=== PATIENT | female | born 1990 | race Caucasian/White ===

== ENCOUNTER 2023-04-01 11:11 | Emergency (ER) | payer BC ==
[2023-04-01] MEDS ORDERED: Acetaminophen 325 MG Tab PO ONE (11:50)
[2023-04-01] MEDS ORDERED: Ibuprofen 400 MG Tab PO STA (11:50)
== END 2023-04-01 12:47 | disposition home or self-care (01) ==
LOC: MW.ED 11:11
DX: M25.512 Pain in left shoulder (principal); Z91.048 Other nonmedicinal substance allergy status; Z91.040 Latex allergy status
CPT/HCPCS: 73030; 99283; A9270

== ENCOUNTER 2023-04-04 18:32 | Emergency (ER) | payer BC ==
[2023-04-04 19:22] LABS: BASOPHILS PERCENT AUTO 0.3 % (0.0-1.5); EOSINOPHILS ABSOLUTE AUTO 0.1 K/uL (0.0-0.7); EOSINOPHILS PERCENT AUTO 1.7 % (0.0-7.0); HEMATOCRIT 40.3 % (36.0-46.0); HEMOGLOBIN 13.9 g/dL (12.0-16.0); LYMPHOCYTES ABSOLUTE AUTO 1.6 K/uL (0.6-2.4); LYMPHOCYTES PERCENT AUTO 23.3 % (16.0-40.0); MEAN CORPUSCULAR HEMOGLOBIN 30.8 pg (27.0-32.0); MEAN CORPUSCULAR HGB CONC 34.5 g/dL (31.0-37.0); MEAN CORPUSCULAR VOLUME 89.4 fL (80.0-98.0); MONOCYTES ABSOLUTE AUTO 0.4 K/uL (0.0-0.8); MONOCYTES PERCENT AUTO 6.5 % (0.0-15.0); NEUTROPHILS ABSOLUTE AUTO 4.5 K/uL (1.4-5.7); NEUTROPHILS PERCENT AUTO 68.2 % (48.0-80.0); NRBC ABSOLUTE 0 K/uL; PLATELET COUNT,PLT 156 K/uL (150-400); RED BLOOD CELL COUNT 4.51 M/uL (4.30-5.90); WHITE BLOOD CELL COUNT,WBC 6.65 K/uL (4.0-11.0)
[2023-04-04] MEDS ORDERED: Acetaminophen 325 MG Tab PO ONE (19:27)
[2023-04-04] MEDS ORDERED: Lidocaine 4% 1 each Patch TOP SCH (19:30)
[2023-04-04 19:34] LABS: A/G RATIO 1.2 (0.9-1.6); ALANINE AMINOTRANSFERASE,ALT 12 IU/L (14-63); ALBUMIN 3.7 g/dL (3.4-5.0); ALKALINE PHOSPHATASE 56 U/L (46-116); ASPARTATE AMNIOTRANSFERASE,AST 11 IU/L (15-37); BILIRUBIN TOTAL 0.2 mg/dL (0.2-1.0); BLOOD UREA NITROGEN,BUN 16 mg/dL (7.0-18.0); CALCIUM 8.4 mg/dL (8.5-10.1); CARBON DIOXIDE,CO2 23.6 mmol/L (21.0-32.0); CHLORIDE,CL 107 mmol/L (98-107); EST CRCL DRUG DOSING (CG) 70.33 mL/min; GLUCOSE RANDOM 127 mg/dL (74-106); LIPASE 128 U/L (73-393); POTASSIUM,K 3.6 mmol/L (3.5-5.1); PROTEIN TOTAL,TP 6.9 g/dL (6.4-8.2); SODIUM,NA 140 mmol/L (136-145)
[2023-04-04] MEDS ORDERED: Iopamidol 755 MG/ML 500 ML Multipack Bottle IVPUSH ONE (19:39)
[2023-04-04 19:43] LABS: ESTIMATED GFR 76 mL/min (>60)
== END 2023-04-04 21:36 | disposition home or self-care (01) ==
LOC: MW.ED 18:32
DX: R07.89 Other chest pain (principal); Z91.048 Other nonmedicinal substance allergy status; Z91.040 Latex allergy status; Z72.0 Tobacco use
CPT/HCPCS: 36415; 71275; 74174; 80053; 83690; 84484; 84703; 85025; 93005; 99285; A9270; Q9967